=== PATIENT | male | born 1950 | race Caucasian/White ===

== ENCOUNTER 2017-02-18 09:42 | Inpatient (IN) | payer OTHER ==
[~2017-02-18] VITALS: Ht 180.3 cm; Wt 61.7 kg
[2017-02-18] VITALS (7 sets, daily range): BP systolic 103–144; BP diastolic 53–88
--- NOTE | ~2017-02-18 | 2DMMODE ---
[facility] [address] [place] [address] 2 D/M-MODE ECHOCARDIOGRAM Name: SOHAIL MEADOWS Room #: 447-P [facility] IN ..#: [id number] Admission: 02/18/17 Attend Phys: Jacob Shaw, Discharge: Date of : 54 Date of Service: 02/18/17 1432 Report #: [id number] THIS REPORT FOR: //name// APPROVED REPORT Study performed: 02/18/2017 13:42:51 EXAM: Comprehensive 2D, Doppler, and color-flow Echocardiogram Patient Location: Bedside Room #: [facility] Status: routine BSA: 1.84 HR: 61 bpm BP: 122/64 mmHg Other Information Study Quality: Adequate Indications Syncope 2D Dimensions RVDd: 29.53 mm LVEF(%): 59.81 (>50%) IVSd: 7.63 (7-11mm) LVOT Diam: 21.79 (18-24mm) LVDd: 42.22 mm PWd: 7.82 (7-11mm) Ascending Ao: 36.29 (22-36mm) LVDs: 28.91 (25-40mm) Aortic Root: 37.03 mm IVC: 13.00 mm Valdivia's LVEF: 59.81 % Volumes Left Atrial Volume (Systole) Single Plane 4CH: 28.66 mL Single Plane 2CH: 38.68 mL LA ESV Index: 20.00 mL/m2 Aortic Valve AoV Peak Hunter.: 0.97 m/s AO Peak Gr.: 3.80 mmHg LVOT Max P.97 mmHg LVOT Max V: 0.70 m/s AKHIL Vmax: 2.68 cm2 Mitral Valve E/A Ratio: 1.0 MV Decel. Time: 206.72 ms MV E Max Hunter.: 0.52 m/s [facility] [place] [address] 2 D/M-MODE ECHOCARDIOGRAM Name: SOHAIL MEADOWS Room #: 447-P [facility] IN .R.#: [id number] Admission: 02/18/17 Attend Phys: Jacob Shaw, Discharge: Date of : 54 Date of Service: 02/18/17 1432 Report #: [id number] A Hunter.: 0.50 m/s MV PHT: 59.95 ms IVRT: 133.79 ms Pulmonary Valve PV Peak Hunter.: 0.87 m/s PV Peak Gr.: 3.02 mmHg Pulmonary Vein P Vein S: 0.37 m/s P Vein A: 0.27 m/s P Vein D: 0.29 m/s P Vein A Dur.: 133.8 msec P Vein S/D Ratio: 1.28 Tricuspid Valve TR Peak Hunter.: 2.28 m/s TR Peak Gr.: 20.82 mmHg PA Pressure: 26.00 mmHg Left Ventricle The left ventricle is normal size. There is normal left ventricular wall thickness. The left ventricular systolic function is normal. The left ventricular ejection fraction is within the normal range. LVEF is 55-60%. Right Ventricle The right ventricle appears mildly dilated. The right ventricular systolic function is normal. Atria The left atrium size is normal. The right atrium size is normal. Aortic Valve The aortic valve is normal in structure. No aortic regurgitation is present. There is no aortic valvular stenosis. Mitral Valve The mitral valve is normal in structure. There is no mitral valve regurgitation noted. No evidence of mitral valve stenosis. Tricuspid Valve The tricuspid valve is normal in structure. There is mild tricuspid regurgitation. The right atrial pressure is estimated at mmHg. There is no pulmonary hypertension. Estimated PAP was 26 mmHg. Pulmonic Valve The pulmonary valve is normal in structure. Trace pulmonic [address] [address] 2 D/M-MODE ECHOCARDIOGRAM Name: SOHAIL MEADOWS Room #: 447-P [facility] IN [facility]#: [id number] Admission: 02/18/17 Attend Phys: Jacob Shaw, Discharge: Date of : 54 Date of Service: 02/18/17 1432 Report #: [id number] regurgitation. Great Vessels The aortic root is normal in size. IVC is normal in size and collapses >50% with inspiration. Pericardium There is no pericardial effusion. <Conclusion> The left ventricle is normal size. The left ventricular systolic function is normal. The right ventricle appears mildly dilated. The aortic valve is normal in structure. There is no mitral valve regurgitation noted. There is mild tricuspid regurgitation. The right atrial pressure is estimated at mmHg. There is no pulmonary hypertension. Estimated PAP was 26 mmHg. There is no pericardial effusion. <ELECTRONICALLY SIGNED> By: Mehrdad Rios MD 02/18/17 1432 143 143 Mehrdad Rios MD /INF
--- NOTE | ~2017-02-18 | HC ---
[facility] [place] [address] CONSULTATION Name: SOHAIL MEADOWS Room #: 447-P [facility] IN M.R.#: [id number] Admission: 02/18/17 Attend Phys: Jacob Shaw MD Discharge: Date of : 54 Report #: [id number] THIS REPORT FOR: //name// CC: Jacob Balbuena REASON FOR CONSULTATION: I was asked to evaluate concerning fever, leukopenia and thrombocytopenia. HISTORY OF PRESENT ILLNESS: The patient was a 66-year-old otherwise healthy individual who was at work as a mechanical development engineer where he developed acute onset lightheadedness where the room started spinning a bit and he had a syncopal episode. He hit his chin on the floor that required some stitches. He was awoken by his workmates. Actually did not feel bad when he awoken. Over the last probably 5 or 6 days, he has had some malaise. No documented fever, chills or sweats. Mild arthralgias and myalgias. Review of system, however, reveals no skin rash or ulcerations, headache, cough, sputum, nausea, vomiting, diarrhea, dysuria or frequency. No pharyngitis symptoms. No chest pains. He has had no previous history of seizure disorder. With his syncopal episode, he did not lose bowel or bladder control. 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 No illness while he was there. Exposed to his grandchildren about a week or so ago. No HIV risk factors. No other animal exposure. The patient does smoke cigarettes, but no illicit drug use or alcohol use. ALLERGIES: None. MEDICATIONS: As noted on his MAR. Has had no recent antibiotics. PAST MEDICAL HISTORY: Bilateral herniorrhaphy. He has tooth pulled about a month ago without issue. FAMILY HISTORY: Colon cancer. SOCIAL HISTORY: As noted above. He is , he lives with his . REVIEW OF SYSTEMS: Noted above with no additions. PHYSICAL EXAMINATION: VITAL SIGNS: He is afebrile, hemodynamically stable. His maximum temperature is 102.9 degrees earlier this morning. His oxygen saturation was normal on room air. SKIN: Unremarkable. [address] [address] CONSULTATION Name: SOHAIL MEADOWS Room #: 447-P [facility] IN [facility].#: [id number] Admission: 02/18/17 Attend Phys: Jacob Shaw MD Discharge: Date of : 54 Report #: [id number] LYMPH: Unremarkable. He was thin. He states he has lost about 10 pounds in the last 6 months. No adenopathy. HEENT: Unremarkable. NECK: Supple, no thyromegaly. No peripheral adenopathy. LUNGS: Clear. HEART: Regular, without murmur. ABDOMEN: Soft, nontender, no hepatosplenomegaly or mass. EXTREMITIES: Unremarkable. LABORATORY STUDIES: Sodium 132, potassium 4.3, bicarbonate 26, creatinine of 1. Liver function tests normal, protein 6.6, CPK normal, LDH 425, TSH 1.5. Hemoglobin 12.1, white count 1.9. Differential not available, platelet count 72,000. Chest x-ray clear. CT head negative. CT chest, abdomen and pelvis: He had a very small left pleural nodule, 6.5 mm. Appears to have fecal impaction, multiple liver cysts and increased size of his pancreas. IMPRESSION: A 66-year-old with syncopal episode, fever of unknown origin associated with leukopenia and thrombocytopenia. Possibilities include viral etiology versus tick borne process vs underlying hematologic malignancy. I doubt toxin exposure. Vasculitis seems less likely. Recommend starting doxycycline at this point in time. We will check laboratory studies including viral studies, ehrlicha and histoplasma, check urinalysis, sedimentation rate, complements, USHA, rheumatoid factor, and peripheral blood smear. If no etiology identified, will need bone marrow biopsy. Imaging studies; however, showed no evidence of lymphadenopathy or splenomegaly at this time. <ELECTRONICALLY SIGNED> By: Rigo Bolivar MD 02/20/17 1410 1220 1434 Rigo Bolivar MD /nt
--- NOTE | ~2017-02-18 | S ---
[facility] [place] [address] SURGICAL PATH RPT PROCEDURE Name: SOHAIL MEADOWS Room #: 447-P ADM IN M.R.#: [id number] Admission: 02/18/17 Date of : 54 Discharge: Report #: [id number] Path Case #: [id number] PATHOLOGY REPORT COLLECTION DATE: 02/18/2017 RECEIVED DATE: 02/19/2017 SUBMITTING PHYS: Jacob Shaw MD OTHER PHYS: Dr. Rolanda Balbuena SPECIMEN(S) RECEIVED: A.Peripheral smear * * * * * * * * * * * * FINAL DIAGNOSIS: Peripheral blood smear: - Pancytopenia including mild normocytic anemia, mild to moderate leukopenia/neutropenia, and moderate thrombocytopenia. (see comment) COMMENT: Overall, the peripheral blood has pancytopenia including mild normocytic anemia, mild to moderate leukopenia/neutropenia and moderate thrombocytopenia. The etiology of the findings is unclear based entirely on slide review. Potential causes of pancytopenia include infections, drug reactions, and primary bone marrow disorders. Other causes of normocytic anemia include anemia of chronic disease, treated and/or compensated vitamin and mineral deficiencies, acute blood loss, and dilutional. Other causes of thrombocytopenia include immune and non-immune platelet destruction, drug and/or toxic exposures, dilutional, and primary bone marrow disorders. Correlation with clinical history and additional laboratory data is recommended. (CLW:; 02/19/2017) PATHOLOGIST: Ines Veloz M.D. REPORT ELECTRONICALLY SIGNED BY: Ines Veloz M.D. DATE/TIME: 02/19/2017 22:34 * * * * * * * * * * * * MICROSCOPIC DESCRIPTION: CBC Data (02/18/17): WBC 1,800 /uL, RBC 4.36, hemoglobin 12.9 g/dL, hematocrit 37.8%, MCV 86.8 fL, MCH 29.5 pg, MCHC 34.0 g/dL, RDW 14.8%, and platelet count 78,000 /uL. Automated white blood cell differential: segs 52.5%, lymphs 35.3%, monos 10.9%, eos 0.5%, and basos 0.8%. Peripheral Blood Smear: Cytomorphological examination of the Degroot's stained peripheral blood smear confirms the provided data. Red blood cells show mild [facility] [address] [place] [address] SURGICAL PATH RPT PROCEDURE Name: MEADOWSSOHAIL Britta Room #: 447-P ADM IN ..#: [id number] Admission: 02/18/17 Date of : 54 Discharge: Report #: [id number] Path Case #: [id number] normocytic anemia with no significant anisopoikilocytosis. No schistocytes or microspherocytes are seen. White blood cells are mild to moderately decreased in number. They are predominantly segmented neutrophils and are without significant dyspoiesis or significant left shift. Rare hypogranular neutrophils are noted. Lymphocytes are predominantly small, round, and mature appearing with condensed chromatin and scant cytoplasm with admixed large granular lymphocytes and occasional reactive appearing lymphocytes. On scanning, no markedly atypical lymphoid cells are seen. Monocytes are mature. Platelets are moderately decreased in number and mainly normal in morphology with rare larger platelets noted. GROSS PATHOLOGY: Received are two Degroot's stained peripheral blood smears and two unstained peripheral blood smears all labeled "Sohail Meadows" (CLW:mgannie; 02/19/2017) CLINICAL HISTORY: 66 year-old man with leukopenia and thrombocytopenia. Morphologic review of the peripheral blood smear is requested by the patient's physician. INITIAL CPT CODE(S): A; [place] Professional services performed by [facility] at [facility] [address], [place] [address] Technical services performed by [facility] at [address] [place] [address], [address], [place] [address]. [facility] [address] [place] [address] PHONE: [phone] DIRECTOR: Felix Cruz M.D. * * * END OF REPORT * * *
--- NOTE | ~2017-02-18 | H ---
[facility] [place] [address] HISTORY AND PHYSICAL Name: ABDIELSOHAIL Britta Room #: 447-P ADM IN M.R.#: [id number] Admission: 02/18/17 Attend Phys: Jacob Shaw MD Discharge: Date of : 54 Report #: [id number] THIS REPORT FOR: //name// CC: Jacob Balbuena DATE OF SERVICE: 02/18/2017 REASON FOR ADMISSION: Syncope. HISTORY OF PRESENT ILLNESS: The patient is a pleasant 66-year-old gentleman with no significant known medical problems. 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 He reports he stepped out to look at some parts and subsequently passed out. He reports he may have felt mildly weak before this event and has recently felt overall body achiness; however, denies any specific numbness or weakness, denies headache, chest pain, palpitations, fevers, chills, skin rashes or other problems. He was passed out for a shot amount of time and found by bystanders and then brought to the emergency room. Here in the emergency room, he is fully awake and alert and feels back to his normal self and has no present symptoms. Of note, his family reports that he does appear to have lost significant weight recently. PAST MEDICAL HISTORY: None significant. PAST SURGICAL HISTORY: Hernia repair bilaterally. SOCIAL HISTORY: Works as a automobile mechanic radiator. He smokes about one half pack a day. He denies alcohol or drug use. FAMILY HISTORY: Significant for colon cancer in his mother in her 60s. ALLERGIES: No known drug allergies. MEDICATIONS: Presently none. REVIEW OF SYSTEMS: Twelve-point review of systems performed, negative except as mentioned in history of present illness. PHYSICAL EXAMINATION: VITAL SIGNS: The patient is afebrile, pulse is 75, respiratory rate of 12, blood pressure 114/58, and O2 sat is 100 on room air. GENERAL: Awake, alert, in no acute distress. HEENT: Small laceration noted over chin measuring about 1.5 cm. CARDIOVASCULAR: S1, S2 present, regular. RESPIRATORY: Air entry present bilaterally. ABDOMEN: Soft, nontender. [facility] [address] [place] [address] HISTORY AND PHYSICAL Name: SOHAIL MEADOWS Room #: 447-P [facility] IN [facility].#: [id number] Admission: 02/18/17 Attend Phys: Jacob Shaw MD Discharge: Date of : 54 Report #: [id number] EXTREMITIES: Without edema. NEUROLOGIC: Awake, alert. No focal findings. SKIN: With 1.5 cm mole noted on right shoulder, which is stable and unchanged per the patient. No palpable lymphadenopathy. LABS AND INVESTIGATIONS: CBC: WBC count of 1.8, hemoglobin is 12.9, MCV is 86, and platelets low at 78. Chemistry with sodium 133, potassium is 5.3, BUN and creatinine within normal range. AST and ALT minimally elevated at 45 and 21. TSH within normal range. Chest x-ray and CT head with no acute findings. EKG with sinus rhythm, no obvious concerning ST-T changes. ASSESSMENT: This is a 66-year-old gentleman presented with syncope. PLAN: 1. Syncope, unclear cause. We will monitor him on telemetry as well as complete an echocardiogram and carotid Dopplers. He possibly may have an underlying systemic illness contributing to his symptoms and we will further assess for the same. 2. Leukopenia and thrombocytopenia, no clear precipitant, may be a viral illness with recent achiness; however, given recent weight loss and tobacco use, we will subject the patient to whole body CT scan to rule out any underlying lymphadenopathy/possible malignancy. If none is noted and stable, he may be able to follow this in the outpatient setting. 3. DVT prophylaxis only with SCDs for the present with low platelets. <ELECTRONICALLY SIGNED> By: Jacob Shaw MD 02/18/17 1300 1150 1213 Jacob Shaw MD /nt
--- NOTE | ~2017-02-18 | EKG ---
[address] [place] [address] ELECTROCARDIOGRAM REPORT Name: MEADOWSSOHAIL Room #: 447-P ADM IN M.R.#: [id number] Admission: 02/18/17 Attend Phys: Jacob Shaw MD Discharge: Date of : 54 Report #: [id number] THIS REPORT FOR: //name// [facility] ED Test Date: 2017-02-18 Test Time: 09:59:13 Pat Name: SOHAIL MEADOWS Department: Room: [facility] Gender: M Ad Taker: Eric TEJEDA : 1950 Requested By: Ervin Naqvi Order Number: [id number] MD: Uday Morel Measurements Intervals Palmer Rate: 73 P: 70 CT: 163 QRS: 56 QRSD: 93 T: 56 QT: 352 QTc: 388 Interpretive Statements Sinus rhythm No significant abnormality No previous ECG available for comparison Electronically Signed On 02-19-2017 8:06:59 CDT by Uday Morel [email or web address] <ELECTRONICALLY SIGNED> By: Uday Morel MD, [facility] 02/19/17 0806 0959 0959 Uday Morel MD, FACC /EPI
--- NOTE | ~2017-02-18 | S ---
[facility] [place] [address] SURGICAL PATH RPT PROCEDURE Name: SOHAIL MEADOWS Room #: 447-P [facility] IN M.R.#: [id number] Admission: 02/18/17 Date of : 54 Discharge: 02/20/17 Report #: [id number] Path Case #: [id number] PATHOLOGY REPORT COLLECTION DATE: 02/19/2017 RECEIVED DATE: 02/19/2017 SUBMITTING PHYS: Jacob Shaw MD OTHER PHYS: Dr. Rolanda Balbuena SPECIMEN(S) RECEIVED: A.Peripheral smear * * * * * * * * * * * * FINAL DIAGNOSIS: Peripheral smear: - Mild to severe pancytopenia and mild myeloid left shift. (please see comment) COMMENT: The peripheral blood shows mild to severe pancytopenia with mild myeloid left shift including rare metamyelocytes without circulating blasts observed. The neutrophils show occasional cytoplasmic vacuoles, findings suggestive of a reactive process probably secondary to infectious/inflammatory etiology. Other possible causes of pancytopenia should also be considered and may include infiltration of the bone marrow by tumors, fibrosis, and granulomatous infections as well as ineffective hematopoiesis such as seen in myelodysplasia, paroxysmal nocturnal hemoglobinuria, vitamin B12 or folate deficiency and myelosuppressive drugs. Increased splenic activity (hypersplenism) should also be considered as well as aplastic anemia. Please correlate clinically. (NEIL:; 02/20/2017) PATHOLOGIST: Beatrice Chin M.D. REPORT ELECTRONICALLY SIGNED BY: Beatrice Chin M.D. DATE/TIME: 02/23/2017 15:40 * * * * * * * * * * * * MICROSCOPIC DESCRIPTION: CBC Data (02/19/17): WBC 1.9, RBC 4.18, hemoglobin 12.3, hematocrit 36.0, MCV 86.1, RDW 14.7%, platelet count 75,000. White blood cell count differential: 37% segs, 50% lymphs, 10% monos, 1% eos, 1% basophils, 1% metamyelocytes. Peripheral Blood: Red blood cells are normochromic with mild anisopoikilocytosis including occasional microcytic forms and rare elliptocytes. There [facility] [address] [place] [address] SURGICAL PATH RPT PROCEDURE Name: SOHAIL MEADOWS Room #: 447-P [facility] IN [facility].#: [id number] Admission: 02/18/17 Date of : 54 Discharge: 02/20/17 Report #: [id number] Path Case #: [id number] are no schistocytes or morphologic evidence of a hemolytic process identified. Platelets are severely decreased with normal morphology. Aggregates of platelets are not identified. White blood cells are severely decreased with predominance of lymphocytes. There is mild myeloid left shift with rare metamyelocytes without circulating blasts observed. The neutrophils show occasional cytoplasmic vacuoles. The lymphocytes are mostly small and mature with few atypical reactive lymphocytes. CLINICAL HISTORY: The patient is a 66 year-old male whose peripheral smear is submitted for review. INITIAL CPT CODE(S): A; [place] Professional services performed by [facility] at [facility], [address] [place] [address]. Technical services performed by [employer] at [address] [place] [address], [address], [place] [address]. [facility] [address] [place] [address] PHONE: [phone] DIRECTOR: Felix Cruz M.D. * * * END OF REPORT * * *
[2017-02-18 10:00] LABS: HEMOGLOBIN 12.9 gm/dL (14.0-18.0)
[2017-02-18 10:02] LABS: HEMATOCRIT 37.8 % (42.0-52.0); MCH 29.5 pg (26.0-34.0); MCV 86.8 fL (80.0-100.0); RBC 4.36 mil/uL (4.50-6.00); RDW 14.8 % (10.5-14.5)
[2017-02-18] MEDS ORDERED: CENTRUM SILVER1 EAC2 PO (10:05)
[2017-02-18 10:06] LABS: WBC 1.8 thou/uL (4.0-11.0)
[2017-02-18 10:07] LABS: CALCIUM 8.1 mg/dL (8.5-10.1)
[2017-02-18 10:08] LABS: POTASSIUM 5.3 mmol/L (3.5-5.1)
[2017-02-18 10:14] LABS: ALBUMIN 3.4 g/dL (3.4-5.0); MAGNESIUM 1.9 mg/dL (1.8-2.4); TOTAL BILIRUBIN 0.4 mg/dL (<0.1-1.0); TOTAL PROTEIN 6.6 g/dL (6.4-8.2)
[2017-02-19 04:10] VITALS: BP 104/50
[2017-02-19 04:18] LABS: HEMATOCRIT 35.4 % (42.0-52.0); HEMOGLOBIN 12.1 gm/dL (14.0-18.0); MCH 29.2 pg (26.0-34.0); MCHC 34.2 g/dL (28.0-37.0)
[2017-02-19 04:19] LABS: MCV 85.2 fL (80.0-100.0); RBC 4.16 mil/uL (4.50-6.00); RDW 14.7 % (10.5-14.5)
[2017-02-19 04:32] LABS: WBC 1.9 thou/uL (4.0-11.0)
[2017-02-19 04:53] LABS: CALCIUM 7.8 mg/dL (8.5-10.1)
[2017-02-19 04:57] LABS: POTASSIUM 4.3 mmol/L (3.5-5.1)
[2017-02-19 08:34] VITALS: BP 97/55
[2017-02-19 15:16] LABS: URINE BILIRUBIN NEGATIVE (Negative); URINE BLOOD NEGATIVE (Negative); URINE COLOR YELLOW; URINE GLUCOSE-RANDOM* NEGATIVE (Negative); URINE KETONES NEGATIVE (Negative); URINE NITRITE NEGATIVE (Negative); URINE PROTEIN (DIPSTICK) NEGATIVE (Negative); URINE SPECIFIC GRAVITY <= 1.005 (1.003-1.035); URINE UROBILINOGEN 0.2 E.U./dl (0.2-1.0)
[2017-02-19 16:18] VITALS: BP 93/49
[2017-02-19 20:50] VITALS: BP 99/60
[2017-02-20 04:00] VITALS: BP 107/57
[2017-02-20 07:44] VITALS: BP 102/54
[2017-02-20 08:45] LABS: HEMOGLOBIN 12.3 gm/dL (14.0-18.0); MCH 29.9 pg (26.0-34.0); MCHC 35.2 g/dL (28.0-37.0); MCV 84.9 fL (80.0-100.0); PLATELET COUNT 72 thou/uL (150-400); RBC 4.13 mil/uL (4.50-6.00); RDW 14.4 % (10.5-14.5); WBC 2.2 thou/uL (4.0-11.0)
[2017-02-20 08:48] LABS: MANUAL DIFF YES
[2017-02-20 09:19] LABS: ABSOLUTE NEUTROPHILS 0.7 thou/uL (1.4-8.2); ATYPICAL LYMPHS 6 %; PLATELET ESTIMATE DECREASED; TOTAL CELL COUNT 100
[2017-02-20 09:24] LABS: APTT 36.5 Seconds (24.5-32.8)
[2017-02-20 09:27] LABS: OBSERVED RETIC COUNT 0.52 % (0.6-2.6)
[2017-02-20] MEDS ORDERED: DOXYCYCLINE 10100 MG PO (09:27)
[2017-02-20 09:28] LABS: ABSOLUTE RETIC COUNT 0.0216 10^6/uL
[2017-02-20 09:46] LABS: FOLIC ACID 18.7 ng/mL (8.6-58.9)
[2017-02-20 10:22] LABS: % SATURATION 26 % (20-39); IRON 62 ug/dL (65-175); TIBC 234 ug/dL (250-450); UIBC 172 ug/dL
[2017-02-20 11:00] VITALS: BP 93/45
[2017-02-20 17:05] VITALS: BP 93/45
[2017-02-20 17:07] VITALS: BP 93/45
[2017-02-20 17:37] VITALS: BP 93/45
[2017-02-20 18:20] LABS: HEPATITIS C VIRUS AB <0.1 (0.0-0.9)
[2017-02-21 01:13] LABS: ANTI-VCA/IgG >600.0 U/mL (0.0-17.9); EBV EARLY ANTIGEN >150.0 U/mL (0.0-8.9)
[2017-02-22 20:06] LABS: COMPLEMENT, TOTAL (CH50) 55 U/mL (42-60)
[2017-02-23 14:12] LABS: PARVOVIRUS IGG 5.3 index (0.0-0.8); PARVOVIRUS IGM 0.2 index (0.0-0.8)
[2017-02-23 15:06] LABS: ANTI-VCA/IgM <36.0 U/mL (0.0-35.9)
[2017-02-23 19:12] LABS: HISTOPLASMA MYCELIAL-ID Negative (Negative)
== END 2017-02-20 17:56 | disposition home or self-care (01) | DRG 312 ==
LOC: ER 09:42 → EROBS 10:53 → 4S 10:53 → ENTRNSPT 02-20 17:35 → 4S 02-20 17:56
PROVIDERS: Emergency Medicine; Hospitalist; Internal Medicine Hematology & Oncology; Specialist
DX: R55 Syncope and collapse (principal); D61.818 Other pancytopenia; R50.9 Fever, unspecified; K76.89 Other specified diseases of liver; F17.210 Nicotine dependence, cigarettes, uncomplicated; Z80.0 Family history of malignant neoplasm of digestive organs
CPT/HCPCS: 10100